=== PATIENT | female | born 1970 | race African-American/Black ===

== ENCOUNTER 2016-12-19 22:52 | Inpatient (IN) | payer SELFPAY ==
[~2016-12-19] VITALS: Ht 162.6 cm; Wt 68.0 kg
[~2016-12-19 22:52] MED LIST: DOXY100T PO; LORT5TAB PO; PYRI200T4 PO; SULF1TAB47 PO; Z.0.NO CURRENT MEDS
[2016-12-19 23:00] VITALS: BP 101/62; PULSE 92; RESP 16; TEMP 98.5; O2SAT 100
[2016-12-19] MEDS ORDERED: ACETAMINOPHEN 325 MG TAB PO ONE (23:45)
[2016-12-19] MEDS ORDERED: SODIUM CHLOR 0.9% 1000 ML INJ 1,000 ML IV ONE (23:45)
[2016-12-20] VITALS (10 sets, daily range): BP systolic 104–134; BP diastolic 57–79; PULSE 64–90; RESP 16–22; TEMP 97.3–98.2; O2SAT 97–100
[2016-12-20 00:12] LABS: AUTOMATED NEUTROPHIL # 2.7 TH/MM3 (1.8-7.7); BASOPHIL % 0.6 % (0.0-2.0); EOSINOPHIL # 0.1 TH/MM3 (0-0.4); EOSINOPHIL % 1.2 % (0.0-4.0); HEMATOCRIT 24.5 % (35.0-46.0); LYMPH % 41.5 % (9.0-44.0); LYMPHOCYTE # 2.3 TH/MM3 (1.0-4.8); MEAN CELL VOLUME 72.7 FL (80.0-100.0); MEAN CORPUSCULAR HEMOGLOBIN 22.6 PG (27.0-34.0); MEAN CORPUSCULAR HGB CONC 31.1 % (32.0-36.0); MONO % 8.8 % (0.0-8.0); NEUT % 47.9 % (16.0-70.0); PLATELET COUNT 243 TH/MM3 (150-450); RED BLOOD COUNT 3.37 MIL/MM3 (4.00-5.30); RED CELL DISTRIBUTION WIDTH 23.2 % (11.6-17.2); WHITE BLOOD COUNT 5.6 TH/MM3 (4.0-11.0)
[2016-12-20 00:22] LABS: HEMO FLAGS AUTO DIFF
[2016-12-20 00:42] LABS: BETA HCG QUANT LESS THAN 1 MIU/ML (0-5)
[2016-12-20 00:42] LABS: ALKALINE PHOSPHATASE 80 U/L (45-117); ALT (GPT) 19 U/L (10-53); ANION GAP 9 MEQ/L (5-15); AST (GOT) 22 U/L (15-37); BICARBONATE 25.5 MEQ/L (21.0-32.0); BLOOD UREA NITROGEN 22 MG/DL (7-18); CHLORIDE 108 MEQ/L (98-107); GLOMERULAR FILTRATION RATE 85 ML/MIN (>89); POTASSIUM 3.4 MEQ/L (3.5-5.1); SODIUM (NA) 142 MEQ/L (136-145); TOTAL BILIRUBIN ADULT LESS THAN 0.1 MG/DL (0.2-1.0)
[2016-12-20] MEDS ORDERED: SODIUM CHLOR 0.9% 250 ML INJ 250 ML IV ONE ×2 (01:00→02:00)
[2016-12-20 01:13] LABS: TARGET CELLS 1+ (NORMAL)
[2016-12-20 01:14] LABS: OVALOCYTES 1+ (NORMAL); SCAN/DIFF AUTO DIFF CONFIRMED
[2016-12-20] MEDS ORDERED: MORPHINE SULFATE 4 MG/ML INJ IV PUSH ONE (01:15)
[2016-12-20 01:24] LABS: BLOOD, URINE LARGE (NEG); COMMENT (UR) CULTURE INDICATED; CULTURE IF INDICATED CULTURE INDICATED; GLUCOSE,URINE NEG (NEG); KETONE, URINE NEG (NEG); NITRITE,URINE NEG (NEG)
[2016-12-20 01:25] LABS: URINE COLOR RED (YELLW/STRAW)
--- NOTE | 2016-12-20 02:03 | PD ---
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 She says she missed her period and had a positive test two weeks ago. She says she started bleeding very heavily today. She says that she is passing very large clots. She has gone through an entire box of tampons today. She complains of lower abdominal cramping. She says she feels a little lightheaded. She denies any chest pain, palpitations, sOB. PFSH Past Medical History Arthritis: No Asthma: No Autoimmune Disease: No Blood Disorders: No Anxiety: No Depression: No Heart Rhythm Problems: No Cancer: No High Cholesterol: No Chemotherapy: No Chest Pain: No Congestive Heart Failure: No COPD: No Cerebrovascular Accident: No Diabetes: No Diminished Hearing: No GERD: No Glaucoma: No Headaches: No Hepatitis: No Hiatal Hernia: No Hypertension: No Kidney Stones: No Myocardial Infarction: No Radiation Therapy: No Renal Failure: No Seizures: No Sickle Cell Disease: No Sleep Apnea: No Thyroid Disease: No Ulcer: No ?: LMP: 1-14-17 : 5 Para: 4 Miscarriage: 0 : 0 Past Surgical History Abdominal Surgery: No AICD: No Cardiac Surgery: No Ear Surgery: No Endocrine Surgery: No Eye Surgery: No Genitourinary Surgery: No Gynecologic Surgery: No Oral Surgery: No Pacemaker: No Thoracic Surgery: No Other Surgery: Yes (D&C POST ) Social History Alcohol Use: No Tobacco Use: Yes (1/2 PK A DAY) Substance Use: No Allergies-Medications (Allergen,Severity, Reaction): Coded Allergies: No Known Allergies (Verified , 12/19/16) Reported Meds & Prescriptions Reported Meds & Active Scripts Active Review of Systems Except as stated in HPI: all other systems reviewed are Neg General / Constitutional: No: Fever, Chills Eyes: No: Blurred Vision HENT: Positive: Lightheadedness, No: Headaches Cardiovascular: No: Chest Pain or Discomfort, Palpitations Respiratory: No: Shortness of Breath Gastrointestinal: No: Nausea, Vomiting Genitourinary: Positive: Vaginal Bleeding, No: Dysuria Skin: No Change in Pigmentation Neurologic: Positive: Dizziness, No: Weakness Physical Exam Narrative GENERAL: Awake and alert, in no acute distress SKIN: Warm and dry. HEAD: Atraumatic. Normocephalic. EYES: Pupils equal and round. No scleral icterus. conjunctival pallor ENT: Mucous membranes pink and moist. NECK: Trachea midline. No JVD. CARDIOVASCULAR: Regular rate and rhythm. No murmur appreciated. RESPIRATORY: No accessory muscle use. Clear to auscultation. Breath sounds equal bilaterally. GASTROINTESTINAL: Abdomen soft, non-tender, nondistended. : Active bleeding from the os. Large clots present in the vaginal vault. No CMT. MUSCULOSKELETAL: No obvious deformities. No clubbing. No cyanosis. No edema. NEUROLOGICAL: Awake and alert. No obvious cranial nerve deficits. Motor grossly within normal limits. Normal speech. PSYCHIATRIC: Appropriate mood and affect; insight and judgment normal. Data Data Last Documented VS Vital Signs Date Time Temp Pulse Resp B/P Pulse Ox O2 Delivery O2 Flow Rate FiO2 12/20/16 02:50 84 16 111/63 99 12/20/16 02:45 97.3 Room Air Orders Complete Blood Count With Diff (12/19/16 23:31) Comprehensive Metabolic Panel (12/19/16 23:31) Urinalysis - C+S If Indicated (12/19/16 23:31) Ed Urine Pregnancytest Poc (12/19/16 23:31) Type And Screen (12/19/16 23:38) Beta Hcg (Quant/Titer) (12/19/16 23:38) Sodium Chlor 0.9% 1000 Ml Inj (Ns 1000 M (12/19/16 23:45) Acetaminophen (Tylenol) (12/19/16 23:45) Red Blood Cells (Rbc) (12/19/16 23:00) Blood Product Administration .UPON TRANSFUSION (12/20/16 00:58) Sodium Chlor 0.9% 250 Ml Inj (Ns 250 Ml (12/20/16 01:00) Us Pelvis Comp 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 Teacher/Non-Preg (12/20/16 ) Morphine Inj (Morphine Inj) (12/20/16 01:15) Urine Culture (12/20/16 00:30) Sodium Chlor 0.9% 250 Ml Inj (Ns 250 Ml (12/20/16 02:00) Admit Order (Ed Use Only) (12/20/16 ) Labs Laboratory Tests Test 12/19/16 12/19/16 12/20/16 12/20/16 23:00 23:30 00:30 01:40 White Blood Count 5.6 TH/MM3 Red Blood Count 3.37 MIL/MM3 Hemoglobin 7.6 GM/DL Hematocrit 24.5 % Mean Corpuscular Volume 72.7 FL Mean Corpuscular Hemoglobin 22.6 PG Mean Corpuscular Hemoglobin 31.1 % Concent Red Cell Distribution Width 23.2 % Platelet Count 243 TH/MM3 Mean Platelet Volume 9.5 FL Neutrophils (%) (Auto) 47.9 % Lymphocytes (%) (Auto) 41.5 % Monocytes (%) (Auto) 8.8 % Eosinophils (%) (Auto) 1.2 % Basophils (%) (Auto) 0.6 % Neutrophils # (Auto) 2.7 TH/MM3 Lymphocytes # (Auto) 2.3 TH/MM3 Monocytes # (Auto) 0.5 TH/MM3 Eosinophils # (Auto) 0.1 TH/MM3 Basophils # (Auto) 0.0 TH/MM3 CBC Comment AUTO DIFF Differential Comment AUTO DIFF CONFIRMED Target Cells 1+ Ovalocytes 1+ Sodium Level 142 MEQ/L Potassium Level 3.4 MEQ/L Chloride Level 108 MEQ/L Carbon Dioxide Level 25.5 MEQ/L Anion Gap 9 MEQ/L Blood Urea Nitrogen 22 MG/DL Creatinine 0.87 MG/DL Estimat Glomerular Filtration 85 ML/MIN Rate Random Glucose 90 MG/DL Calcium Level 8.1 MG/DL Total Bilirubin LESS THAN 0.1 MG/DL Aspartate Amino Transf 22 U/L (AST/SGOT) Alanine Aminotransferase 19 U/L (ALT/SGPT) Alkaline Phosphatase 80 U/L Total Protein 7.1 GM/DL Albumin 3.5 GM/DL Blood Type O POSITIVE Antibody Screen POSITIVE Crossmatch Leukocyte-Reduced Red Blood Cells Blood Bank Comment Human Chorionic Gonadotropin, LESS THAN 1 Quant MIU/ML Urine Color RED Urine Turbidity MARKED Urine pH 6.0 Urine Specific [place] 1.024 Urine Protein 300 mg/dL Urine Glucose (UA) NEG mg/dL Urine Ketones NEG mg/dL Urine Occult Blood LARGE Urine Nitrite NEG Urine Bilirubin NEG Urine Urobilinogen LESS THAN 2.0 MG/DL Urine Leukocyte Esterase NEG Urine RBC /hpf Urine WBC 111 /hpf Microscopic Urinalysis Comment CULTURE INDICATED Antibody Identification Anti-E Test 12/20/16 01:55 Blood Type O POSITIVE MDM Medical Decision Making Medical Screen Exam Complete: Yes Emergency Medical Condition: Yes Medical Record Reviewed: Yes Differential Diagnosis anemia vs ectopic vs miscarriage Narrative Course Patient is a 46-year-old female comes in complaining of heavy vaginal bleeding. Exam shows blood pressure, large clots present. The clots were removed from the vaginal vault. IV established, labs sent. Labs show a hemoglobin of 7.6. Because patient is still actively bleeding and has a low hemoglobin, she'll be transfused. OB consulted. test is negative. Patient will be admitted for vaginal bleeding and anemia. Ultrasound performed shows fibroids in the uterus. Diagnosis Primary Impression: Vaginal bleeding Additional Impression: Anemia Qualified Code: D64.89 - Anemia due to other cause, not classified Admitting Information Admitting Physician Requests: Admit Vicky Morfin MD Dec 20, 2016 02:02
--- NOTE | 2016-12-20 03:41 | HHI.HP ---
HPI Travel History International Travel<30 Days: No Contact w/Intl Traveler<30Days: No Known Affected Area: No History of Present Illness HPI This patient is a 46-year-old 6 para 40-4 states her last normal menstrual period was October 2016 she presents to the emergency room with vaginal bleeding she states the bleeding began at approximately 7 AM was changing her pad every 45 minutes also having crampy lower abdominal pain left side greater than the right she does feel weak states she had an IUD removed in 2014 and her cycles have been heavy with cramping ever since that time however this episode of bleeding has been the heaviest she states that she did a test about 2 weeks ago when it was positive however the beta hCG this evening is negative no dizziness has not passed out states that she eats a lot of ice all day and has a history of anemia History Past Medical History Narrative Medical No known drug allergies denies any medical problems no diabetes no hypertension no previous breast disease states that her breasts are cystic Presently on no medications Obstetric History Obstetric History Vaginal delivery 4 all at term had to have a blood transfusion with her last baby VIP 2 Past Surgical History Narrative Surgical Knee surgery D&C 2 Family History Family History: Negative Social History Alcohol Use: No Tobacco Use: Yes (smokes a pack of cigarettes per day) Substance Abuse: No (previous history of cocaine and marijuana use) Allergies-Medications (Allergen,Severity, Reaction): Coded Allergies: No Known Allergies (Verified , 12/19/16) Home Meds Discontinued Reported Medications Miscellaneous (No Current Meds) Misc Ref 0 06/06/08 Discontinued Scripts Hydrocodone-Acetaminophen (Lortab 5/500)5 Mg/500 Mg Tab1 Tab PO Q4HPRN #20 Ref 0 FOR PAIN Prov:Galina AVENDAÑO M.D. 08/10/08 Doxycycline Hyclate 100 mg 100 Mg [id number] Mg PO BID #20 Ref 0 Prov:Galina AVENDAÑO M.D. 08/10/08 Phenazopyridine Hcl (Pyridium)200 Mg [id number] Mg PO TIDPRN #10 Ref 0 Prov:CSORTAN,SILVERIO S. M.D. 06/06/08 Trimethoprim/Sulfamethoxazole (Bactrim Ds) Tab1 Tab PO BID 7 Days Ref 0 Prov:CSORTAN,SILVERIO S. M.D. 06/06/08 Review of Systems General / Constitutional: No: Fever, Weight Gain, Weight Loss, Chills, Other Eyes: No: Diploplia, Blurred Vision, Visual changes, Pain, Photophobia, Other HENT: No: Headaches, Vertigo, Dental Difficulties, Lightheadedness, Other Cardiovascular: No: Irregular Rhythm, Chest Pain or Discomfort, Palpitations, Tachycardia, Syncope, Varicosities, Edema, Cyanosis, Other Respiratory: No: Cough, Short of Breath, Wheezing, Other Gastrointestinal: Abdominal Pain Genitourinary: Vaginal Bleeding Musculoskeletal: Cramping Skin: No Rash, No Itching, No Dryness, No Lumps, No Change in Pigmentation, No Change in Nails, No Alopecia, No Lesions, No Breast Lumps, No Breast Tenderness , No Breast Swelling, No Other Neurologic: No: Weakness, Dizziness, Syncope, Focal Abnormalities, Coordination Problem, Headache, Slurred Speech, Seizures, Other Psychiatric: No: Anxiety, Depression, Suicidal Ideations, Disorder of Thought, Mood Disorder, Substance Abuse, Homicidal Ideation, Other Physical Exam Vital Signs Date Time Temp Pulse Resp B/P Pulse Ox O2 Delivery O2 Flow Rate FiO2 12/20/16 02:50 84 16 111/63 99 12/20/16 02:45 97.3 90 16 104/59 100 Room Air 12/19/16 23:00 98.5 92 16 101/62 100 Narrative GENERAL: Well-nourished, well-developed patient. Alert oriented 3 and cooperative in mild distress secondary to lower abdominal cramping SKIN: Warm and dry. HEAD: Normocephalic and atraumatic. EYES: No scleral icterus. No injection or drainage. ENT: No nasal drainage noted. Mucous membranes pink. Airway patent. NECK: Supple, trachea midline. No JVD. No thyromegaly CARDIOVASCULAR: Regular rate and rhythm without murmurs, gallops, or rubs. Pulse 92 mild tachycardia RESPIRATORY: Breath sounds equal bilaterally. No accessory muscle use. ABDOMEN/GI: Soft no epigastric or right upper quadrant tenderness no rebound tenderness bowel sounds are positive tender in the suprapubic area right and left lower quadrants left greater than right Gravid to [-] weeks size Fundal Height: [-] Pelvic exam done by the emergency room physician who reports large amount of clots in the vagina uterus not enlarged no palpable masses. Upon evaluation by INVENTORY ANALYST there was no active bleeding EXTREMITIES: No cyanosis or edema. Healed scar on the right knee NEUROLOGICAL: Awake and alert. Motor and sensory grossly within normal limits. Five out of 5 muscle strength in all muscle groups. Normal speech. Data Data Vital Signs Reviewed: Yes (blood pressure 101/62 pulse is 92 temperature is 98.5) Orders Complete Blood Count With Diff (12/19/16 23:31) Comprehensive Metabolic Panel (12/19/16 23:31) Urinalysis - C+S If Indicated (12/19/16 23:31) Ed Urine Pregnancytest Poc (12/19/16 23:31) Type And Screen (12/19/16 23:38) Beta Hcg (Quant/Titer) (12/19/16 23:38) Sodium Chlor 0.9% 1000 Ml Inj (Ns 1000 M (12/19/16 23:45) Acetaminophen (Tylenol) (12/19/16 23:45) Red Blood Cells (Rbc) (12/19/16 23:00) Blood Product Administration .UPON TRANSFUSION (12/20/16 00:58) Sodium Chlor 0.9% 250 Ml Inj (Ns 250 Ml (12/20/16 01:00) Us Pelvis Comp Paper Folder/Non-Preg (12/20/16 ) Morphine Inj (Morphine Inj) (12/20/16 01:15) Urine Culture (12/20/16 00:30) Sodium Chlor 0.9% 250 Ml Inj (Ns 250 Ml (12/20/16 02:00) Admit Order (Ed Use Only) (12/20/16 ) Labs Laboratory Tests Test 12/19/16 12/19/16 12/20/16 12/20/16 23:00 23:30 00:30 01:40 White Blood Count 5.6 Red Blood Count 3.37 Hemoglobin 7.6 Hematocrit 24.5 Mean Corpuscular Volume 72.7 Mean Corpuscular Hemoglobin 22.6 Mean Corpuscular Hemoglobin 31.1 Concent Red Cell Distribution Width 23.2 Platelet Count 243 Mean Platelet Volume 9.5 Neutrophils (%) (Auto) 47.9 Lymphocytes (%) (Auto) 41.5 Monocytes (%) (Auto) 8.8 Eosinophils (%) (Auto) 1.2 Basophils (%) (Auto) 0.6 Neutrophils # (Auto) 2.7 Lymphocytes # (Auto) 2.3 Monocytes # (Auto) 0.5 Eosinophils # (Auto) 0.1 Basophils # (Auto) 0.0 CBC Comment AUTO DIFF Differential Comment AUTO DIFF CONFIRMED Target Cells 1+ Ovalocytes 1+ Sodium Level 142 Potassium Level 3.4 Chloride Level 108 Carbon Dioxide Level 25.5 Anion Gap 9 Blood Urea Nitrogen 22 Creatinine 0.87 Estimat Glomerular Filtration 85 Rate Random Glucose 90 Calcium Level 8.1 Total Bilirubin LESS THAN 0.1 Aspartate Amino Transf 22 (AST/SGOT) Alanine Aminotransferase 19 (ALT/SGPT) Alkaline Phosphatase 80 Total Protein 7.1 Albumin 3.5 Blood Type O POSITIVE Antibody Screen POSITIVE Crossmatch Leukocyte-Reduced Red Blood Cells Blood Bank Comment Human Chorionic Gonadotropin, LESS THAN 1 Quant Urine Color RED Urine Turbidity MARKED Urine pH 6.0 Urine Specific [place] 1.024 Urine Protein 300 Urine Glucose (UA) NEG Urine Ketones NEG Urine Occult Blood LARGE Urine Nitrite NEG Urine Bilirubin NEG Urine Urobilinogen LESS THAN 2.0 Urine Leukocyte Esterase NEG Urine RBC Urine WBC 111 Microscopic Urinalysis Comment CULTURE INDICATED Antibody Identification Anti-E Test 12/20/16 01:55 Blood Type O POSITIVE Date/Time Procedure Status Source Growth 12/20/16 00:30 Urine Culture Received Urine Clean Catch Pending Assessment/Plan Assessment and Plan Abnormal uterine bleeding Possible history of a blighted ovum that was retained with subsequent passage Beta hCG is negative however Abnormal uterine bleeding possibly secondary to fibroids Possible premenopausal changes Possible medical reasons such as liver disease. Thyroid disease Culture indicated on the urinalysis we will wait for the micro-report Plan Admit Transfused 2 units of packed red blood cells Posttransfusion CBC Had a TSH to previous labs which has included a CBC and beta hCG comprehensive metabolic profile urinalysis And urine drug screen to the urinalysis Motrin 600 mg by mouth every 6 hours when necessary for cramping As there is no active bleeding we'll give Provera 10 mg by mouth twice a day for the next 14 days If however the bleeding continues heavily we'll consider estrogen 25 mg IV/or possible D&C Ultrasound to rule out fibroids or adnexal pathology. Measure the endometrial thickness Marielos Luna MD Dec 20, 2016 03:41
--- NOTE | 2016-12-20 03:54 | RADRPT ---
EXAM DATE/TIME: 12/20/2016 02:22 [facility] COMPARISON: No previous studies available for comparison. INDICATIONS : Bleeding. MEDICAL HISTORY : . x 2. Blood transfusion. SURGICAL HISTORY : Right knee replacement. Dilation and curettage. ENCOUNTER: Initial ACUITY: 1 day PAIN SCORE: 8/10 LOCATION: Bilateral pelvis MEASUREMENTS: UTERUS: 10.0 x 8.3 x 5.8 cm ENDOMETRIAL STRIPE: >20 mm RIGHT OVARY: 3.2 x 2.8 x 2.0 cm LEFT OVARY: 3.1 x 1.6 x 1.3 cm FINDINGS: UTERUS: Heterogeneous rounded greater than 6 cm fundal region mass has appearance of a fibroid. No evidence o f intrauterine gestation. RIGHT OVARY: Small simple appearing cyst. LEFT OVARY: Small simple appearing cyst MISCELLANEOUS: No free fluid. CONCLUSION: Fibroid uterus Nima Delarosa MD on December 20, 2016 at 3:49 Board Certified Radiologist. This report was verified electronically.
--- NOTE | 2016-12-20 04:09 | HHI.PR ---
Subjective Remarks Patient sleeping no complaints Objective - Minimal bleeding on the pad that was there at the original consult Presently being transfused first unit of blood Ultrasound shows fibroid uterus nothing inside the uterus no fluid in the cul-de -sac small ovarian cyst on the left Vital Signs Date Time Temp Pulse Resp B/P Pulse Ox O2 Delivery O2 Flow Rate FiO2 12/20/16 02:50 84 16 111/63 99 12/20/16 02:45 97.3 Room Air Result Diagram: 12/19/16 2300 12/19/16 2300 A/P Assessment and Plan Abnormal uterine bleeding secondary to uterine fibroids Anemia presently being transfused 2 units of packed red blood cells No clinical evidence of or spontaneous AB Plan; Provera 10 mg by mouth twice a day for a total 14 days Posttransfusion CBC Urine drug screen TSH Motrin for pain Pad count Marielos Luna MD Dec 20, 2016 04:09
[2016-12-20] MEDS: IBUPROFEN 600 MG TAB PO SCH ×4 (06:26→22:49)
[2016-12-20] MEDS: LACTATED RINGER'S 1000 ML INJ 1,000 ML IV SCH ×2 (06:45→20:15)
[2016-12-20 07:03] LABS: AUTOMATED NEUTROPHIL # 2.3 TH/MM3 (1.8-7.7); BASOPHIL # 0.1 TH/MM3 (0-0.2); EOSINOPHIL # 0.1 TH/MM3 (0-0.4); EOSINOPHIL % 1.8 % (0.0-4.0); HEMATOCRIT 24.8 % (35.0-46.0); LYMPH % 47.4 % (9.0-44.0); LYMPHOCYTE # 2.7 TH/MM3 (1.0-4.8); MEAN CORPUSCULAR HEMOGLOBIN 24.9 PG (27.0-34.0); MEAN CORPUSCULAR HGB CONC 31.9 % (32.0-36.0); MONO % 9.4 % (0.0-8.0); NEUT % 40.4 % (16.0-70.0); PLATELET COUNT 184 TH/MM3 (150-450); RED BLOOD COUNT 3.18 MIL/MM3 (4.00-5.30); WHITE BLOOD COUNT 5.8 TH/MM3 (4.0-11.0)
[2016-12-20 07:08] LABS: HEMO FLAGS AUTO DIFF
[2016-12-20 07:55] LABS: OVALOCYTES 1+ (NORMAL); PLATELET ESTIMATE SMEAR LOW (NORMAL); PLATELET MORPHOLOGY ENLARGED (NORMAL)
[2016-12-20 07:56] LABS: SCAN/DIFF AUTO DIFF CONFIRMED
[2016-12-20] MEDS: medroxyPROGESTERone ACETATE 10 MG TAB PO SCH ×2 (09:34→19:51)
[2016-12-20 13:51] LABS: HEMATOCRIT 27.6 % (35.0-46.0)
[2016-12-20 13:55] LABS: REVIEW FLAG FINAL
[2016-12-20] MEDS ORDERED: ONDANSETRON ODT 4 MG TAB PO PRN (15:15)
[2016-12-20 18:22] LABS: AUTOMATED NEUTROPHIL # 3.3 TH/MM3 (1.8-7.7); BASOPHIL # 0.1 TH/MM3 (0-0.2); EOSINOPHIL # 0.1 TH/MM3 (0-0.4); HEMATOCRIT 29.6 % (35.0-46.0); LYMPH % 29.9 % (9.0-44.0); LYMPHOCYTE # 1.6 TH/MM3 (1.0-4.8); MEAN CELL VOLUME 78.3 FL (80.0-100.0); MEAN CORPUSCULAR HEMOGLOBIN 24.4 PG (27.0-34.0); MEAN CORPUSCULAR HGB CONC 31.2 % (32.0-36.0); MONO % 7.8 % (0.0-8.0); NEUT % 60.3 % (16.0-70.0); PLATELET COUNT 222 TH/MM3 (150-450); RED BLOOD COUNT 3.78 MIL/MM3 (4.00-5.30); RED CELL DISTRIBUTION WIDTH 24.6 % (11.6-17.2); WHITE BLOOD COUNT 5.5 TH/MM3 (4.0-11.0)
[2016-12-20 18:23] LABS: HEMO FLAGS AUTO DIFF
[2016-12-20 18:58] LABS: SCAN/DIFF AUTO DIFF CONFIRMED
[2016-12-20] MEDS: oxyCODONE/ACETAMINOPHEN 5 MG/325 MG TAB PO PRN (19:52)
[2016-12-20 21:21] LABS: AMPHETAMINE, URINE NEG (NEG); BARBITURATES, URINE NEG (NEG); COCAINE, URINE POS (NEG)
[2016-12-21] VITALS: BP 116/65; PULSE 73; RESP 20; TEMP 97.7; O2SAT 100
[2016-12-21] MEDS: oxyCODONE/ACETAMINOPHEN 5 MG/325 MG TAB PO PRN ×3 (01:36→13:04)
[2016-12-21] MEDS: LACTATED RINGER'S 1000 ML INJ 1,000 ML IV SCH ×2 (04:24→12:15)
[2016-12-21] MEDS: IBUPROFEN 600 MG TAB PO SCH ×2 (05:49→12:21)
[2016-12-21] MEDS: medroxyPROGESTERone ACETATE 10 MG TAB PO SCH (07:40)
[2016-12-21] MEDS ORDERED: MEDR10TA7 PO ×4 (07:42→08:33)
[2016-12-21] MEDS ORDERED: IBUP-232 PO (07:42)
--- NOTE | 2016-12-21 07:57 | HHI.FPPN ---
Subjective Remarks Pt seen and examined this morning. AFVSS. No acute events overnight. Pt continues to have vaginal bleeding, significantly decreased compared to when she came in. She also endorses abdominal cramping. Denies feeling light headed, dizzy. (Juan Graves MD R2) Remarks Patient seen and evaluated with resident under direct supervision, agree with assessment and plan. (Dean Aleman MD) Objective Vitals Vital Signs Date Time Temp Pulse Resp B/P Pulse Ox O2 Delivery O2 Flow Rate FiO2 12/21/16 03:09 18 12/21/16 00:00 97.7 73 20 116/65 100 12/20/16 20:00 97.5 71 22 112/58 100 12/20/16 16:01 98.2 70 20 134/79 100 12/20/16 12:00 98.2 74 18 115/62 98 12/20/16 09:25 97.4 64 18 107/62 100 12/20/16 08:27 72 17 110/68 98 I/O 12/20/16 12/20/16 12/20/16 12/21/16 12/21/16 12/21/16 07:00 15:00 23:00 07:00 15:00 23:00 Intake Total 250 ml 955 ml 240 ml 240 ml 166 ml Output Total 200 ml 400 ml Balance 250 ml 955 ml 40 ml -160 ml 166 ml Intake Oral 240 ml 240 ml IV Total 955 ml 166 ml FFP 250 ml Output Urine Total 200 ml 400 ml # Voids 2 # Bowel Movements 0 0 # Sanitary Pads 1 Pads 3 Pads 1 Pads (Juan Graves MD R2) Result Diagram: 12/20/16 1755 12/19/16 2300 Objective Remarks SKIN: Warm and dry. HEAD: Atraumatic. Normocephalic. EYES: Pupils equal and round. No scleral icterus. No injection or drainage. ENT: No nasal bleeding or discharge. Mucous membranes pink and moist. NECK: Trachea midline. No JVD. CARDIOVASCULAR: Regular rate and rhythm. RESPIRATORY: No accessory muscle use. Clear to auscultation. Breath sounds equal bilaterally. GASTROINTESTINAL: Abdomen soft, non-tender, nondistended. Hepatic and splenic margins not palpable. Positive bowel sounds. MUSCULOSKELETAL: Extremities without clubbing, cyanosis, or edema. No obvious deformities. NEUROLOGICAL: Awake and alert. No obvious cranial nerve deficits. Motor grossly within normal limits. Normal speech. PSYCHIATRIC: Appropriate mood and affect; insight and judgment normal. (Juan Graves MD R2) A/P Assessment and Plan Pt is a 46 year old female admitted due to abnormal uterine bleeding, found to be anemic with hemoglobin of 7.6, s/p 2 units of packed red blood cells. Hemoglobin is 9.2 this morning. Vaginal bleeding has decreased significantly and pt is stable for discharge. Discharge Planning Anticipate discharge later today (Juan Graves MD R2) Problem List: (1) Abnormal uterine bleeding (AUB) Status: Acute Plan: Uterine bleeding secondary to uterine fibroids HCG less than 1, No clinical evidence of or spontaneous AB Provera 10 mg by mouth twice a day, pt will likely have continued bleeding after she stops taking Provera Pt to be discharged with 4 week supply which will give her adequate time to establish with an [employer] for follow up Motrin prn abdominal cramping TSH within normal limits at 0.449 Urine drug screen positive for cocaine Imaging: Pelvic US: Fibroid uterus (2) Anemia Status: Acute Plan: Improving On admission pt had a hemoglobin of 7.6 and hematocrit of 24.5. She was given 2 units of packed rbcs. H &H this morning 9.2 and 26.9 respectively. (3) Nutrition, metabolism, and development symptoms Status: Acute Plan: Fluids: LR 125 mls/hr Electrolytes: potassium low ar 3.4, potassium chloride 40meq x1 Nutrition: regular basic diet (4) Contraindication to deep vein thrombosis (DVT) prophylaxis Status: Acute Plan: Pt admitted due to abnormal uterine bleeding, will hold DVT prophylaxis. (Juan Graves MD R2) Problem Qualifiers (1) Anemia: Qualified Code: D64.89 - Anemia due to other cause, not classified Juan Graves MD R2 Dec 21, 2016 07:57 Dean Aleman MD Jan 04, 2017 10:08
[2016-12-21 08:00] VITALS: BP 138/63; PULSE 80; RESP 20; TEMP 97.3; O2SAT 100
--- NOTE | 2016-12-21 08:35 | HHI.DCPOC ---
Discharge Care Plan Diagnosis: (1) Vaginal bleeding (2) Anemia Goals to Promote Your Health * To prevent worsening of your condition and complications * To maintain your health at the optimal level Directions to Meet Your Goals Take your medications as prescribed Follow your dietary instruction Follow activity as directed Keep your appointments as scheduled Take your immunizations and boosters as scheduled If your symptoms worsen call your PCP, if no PCP go to Urgent Care Center or Emergency Room Smoking is Dangerous to Your Health. Avoid second hand smoke Call the 24-hour hour crisis hotline for domestic abuse at Juan Graves MD R2 Dec 21, 2016 08:35 Dean Aleman MD Dec 21, 2016 08:47
[2016-12-21] MEDS ORDERED: POTASSIUM CHLORIDE 20 MEQ CONTROLLED RELEASE TAB PO ONE (09:15)
[2016-12-21 12:00] VITALS: BP 122/58; PULSE 81; RESP 18; TEMP 98.5; O2SAT 99
== END 2016-12-21 13:38 | disposition home or self-care (01) | DRG 812 ==
LOC: NEPC 22:52 → NEDA 12-20 03:14 → NEDH 12-20 06:04 → N07B 12-20 08:35
PROVIDERS: ADMIT Obstetrics & Gynecology; ATTEND Obstetrics & Gynecology
PROC: 30233N1 Transfusion of Nonautologous Red Blood Cells into Peripheral Vein, Percutaneous Approach (ICD-10-PCS; principal; 2016-12-20)
DX: D64.89 Other specified anemias (principal); D25.9 Leiomyoma of uterus, unspecified; N93.9 Abnormal uterine and vaginal bleeding, unspecified; F17.210 Nicotine dependence, cigarettes, uncomplicated
CPT/HCPCS: 36430; 76856; 80053; 80307; 81001; 84443; 84702; 84703; 85014; 85018; 85025; 86077; 86850; 86870; 86900; 86901; 86902; 86920; 86922; 87086; 96361; 96374; J2270; J7030; J7050; J7120; P9016